=== PATIENT | male | born 1995 | race African-American/Black ===

== ENCOUNTER 2023-08-03 13:20 | Emergency (ER) | payer MEDICAID, OTHER ==
[~2023-08-03] VITALS: Ht 177.8 cm; Wt 60.0 kg
[2023-08-03 13:50] VITALS: BP 136/82; PULSE 54; RESP 16; TEMP 98.3
== END 2023-08-03 13:50 | disposition home or self-care (01) ==
LOC: ER 13:20
DX: S43.004A Unspecified dislocation of right shoulder joint, initial encounter (principal); X58.XXXA Exposure to other specified factors, initial encounter; Y93.89 Activity, other specified; Y92.89 Other specified places as the place of occurrence of the external cause; Y99.8 Other external cause status
CPT/HCPCS: 23650; 99281; 99284; A4565